=== PATIENT | female | born 1995 | race Caucasian/White ===

== ENCOUNTER 2025-07-27 16:50 | Emergency (ER) | payer SELFPAY ==
[~2025-07-27] VITALS: Ht 167.6 cm; Wt 51.0 kg
[2025-07-27 16:54] VITALS: TEMP 37.1; O2SAT 100
[2025-07-27] MEDS: LORAZEPAM 1MG TABLET PO ONE (18:09)
[2025-07-27 18:44] LABS: BASOPHILS % 0.2 % (0.0-2.0); EOSINOPHILS % 0.2 % (0.0-5.0); HEMATOCRIT. 40.0 % (36.0-48.0); HEMOGLOBIN. 13.2 g/dL (12.0-16.0); LYMPHOCYTES % 13.0 % (20.0-50.0); MEAN PLATELET VOLUME 9.3 fl (7.4-10.4); MONOCYTES % 4.0 % (2.0-8.0); NEUTROPHILS % 82.6 % (40.0-76.0); PLATELET 307 x1000/uL (130-400); RED BLOOD CELL COUNT 4.26 mill/uL (4.2-5.4); RED CELL DISTRIBUTION WIDTH 13.9 % (11.6-14.6)
[2025-07-27 18:53] LABS: CREATININE 0.8 mg/dL (0.6-1.0)
[2025-07-27 18:54] LABS: TROPONIN I HIGH SENSITIVITY < 4 ng/L (3.0-34); UREA NITROGEN BLOOD 9 mg/dL (9-23)
[2025-07-27 19:27] VITALS: BP 127/78; PULSE 85; RESP 18; O2SAT 100
== END 2025-07-27 19:30 | disposition home or self-care (01) ==
LOC: ER 16:50
DX: F41.0 Panic disorder [episodic paroxysmal anxiety] (principal); R00.0 Tachycardia, unspecified; Z79.899 Other long term (current) drug therapy
CPT/HCPCS: 36415; 80048; 83735; 84484; 85025; 93005; 99284